=== PATIENT | male | born 1940 | race Caucasian/White ===

== ENCOUNTER 2017-08-25 17:47 | Emergency (ER) | payer OTHER ==
--- NOTE | 2017-08-25 17:53 | PDOC ---
History of Present Illness - General History Source: Patient Exam Limitations: No Limitations - History of Present Illness Initial Comments: 08/25/17 18:10 The patient is a 77-year-old male, with a significant past medical history of HTN and hypercholesterolemia, who presents to the ED with a recurrent nosebleed. Pt is bleeding from his left nares. He reports that he takes baby aspirin at night but stopped once the bleeding began 3 days ago. He denies any dizziness or lightheadedness. He denies having any other complaints. <Dixie Buckley - Last Filed: 08/25/17 18:10> - General History Source: Patient Exam Limitations: No Limitations (no trauma rat) <Maura Boyd - Last Filed: 08/25/17 18:42> - General Chief Complaint: Nasal Bleeding Stated Complaint: NOSE BLEED FROM LEFT NARE Past History <Dixie Buckley - Last Filed: 08/25/17 18:10> - Past Medical History Anemia: No Asthma: No Cancer: No Cardiac Disorders: No CVA: No COPD: No CHF: No Dementia: No Diabetes: No GI Disorders: No Disorders: No HTN: Yes Hypercholesterolemia: Yes Liver Disease: No Seizures: No Thyroid Disease: No - Surgical History Abdominal Surgery: No Appendectomy: No Cardiac Surgery: No Cholecystectomy: No Lung Surgery: No Neurologic Surgery: No Orthopedic Surgery: No - Suicide/Smoking/Psychosocial Hx Smoking History: Former smoker Have you smoked in the past 12 months: No If you are a former smoker, when did you quit?: 35 YEARS AGO Hx Alcohol Use: Yes (SOCIALLY) Substance Use Type: None <Maura Boyd - Last Filed: 08/25/17 18:42> - Past Medical History Allergies/Adverse Reactions: Allergies Allergy/AdvReac Type Severity Reaction Status Date / Time amoxicillin Allergy Intermediate Hives Verified 08/25/17 18:02 Home Medications: Ambulatory Orders Ascorbic Acid [Vitamin C -] 1,000 mg PO DAILY 07/03/14 Aspirin [Aspirin EC] 81 mg PO HS 07/03/14 Cholecalciferol (Vitamin D3) [Vitamin D-3] 1,000 unit PO DAILY 07/03/14 Pravastatin Sodium [Pravachol -] 40 mg PO HS 07/03/14 Irbesartan 150 mg PO DAILY 08/25/17 Ubidecarenone [Coq-10] 300 mg PO DAILY 08/25/17 Review of Systems - Review of Systems Able to Perform ROS?: Yes Comments:: 08/25/17 18:11 GENERAL/CONSTITUTIONAL: No fever or chills. No weakness. HEAD, EYES, EARS, NOSE AND THROAT: (+)nosebleed. No change in vision. No ear pain or discharge. No sore throat. CARDIOVASCULAR: No chest pain or shortness of breath. RESPIRATORY: No cough, wheezing, or hemoptysis. GASTROINTESTINAL: No nausea, vomiting, diarrhea or constipation. GENITOURINARY: No dysuria, frequency, or change in urination. MUSCULOSKELETAL: No joint or muscle swelling or pain. No neck or back pain. SKIN: No rash NEUROLOGIC: No headache, vertigo, loss of consciousness, or change in strength/ sensation. ENDOCRINE: No increased thirst. No abnormal weight change. HEMATOLOGIC/LYMPHATIC: No anemia, easy bleeding, or history of blood clots. ALLERGIC/IMMUNOLOGIC: No hives or skin allergy. <Dixie Buckley - Last Filed: 08/25/17 18:10> *Physical Exam - Vital Signs Last Vital Signs Temp Pulse Resp BP Pulse Ox 98.3 F 79 16 136/90 99 08/25/17 17:48 08/25/17 17:48 08/25/17 17:48 08/25/17 17:48 08/25/17 17:48 - Physical Exam Comments: 08/25/17 18:11 GENERAL: Awake, alert, and fully oriented, in no acute distress HEAD: No signs of trauma EYES: PERRLA, EOMI, sclera anicteric, conjunctiva clear ENT: (+)Left nare: there is a small area on medial septum with some scant bleeding. Auricles normal inspection, oropharynx clear without exudates. Moist mucosa. NECK: Normal ROM, supple, no lymphadenopathy, JVD, or masses LUNGS: Breath sounds equal, clear to auscultation bilaterally. No wheezes, and no crackles SKIN: Warm, Dry, normal turgor, no rashes or lesions noted <Dixie Buckley - Last Filed: 08/25/17 18:10> Medical Decision Making - Medical Decision Making 08/25/17 17:50 77-year-old male here today complaining of intermittent nosebleed for the last 24 hours. Patient states it stopped a few hours ago denies feeling lightheaded no chest pain or shortness breath no moderating factors. States has been bleeding heavily denies any blood thinners just aspirin Plavix Coumadin. No trauma no chest pain or shortness breath On exam patient is awake alert no acute distress no pallor noted. Lungs are clear bilaterally heart is regular no murmurs rubs or gallops abdomen soft and nontender extremities are warm well perfused no edema. No skin warm dry no bruising. HEENT no active nasal bleeding Plan patient with intermittent nosebleed no active bleeding. We'll refer for ENT follow-up recommend bacitracin to the anterior nose and humidifier to help with further bleeding. Given instructions how to stop bleeding should it recur proper technique DC home 08/25/17 18:42 Patient's nose stopped bleeding no blood in the posterior pharynx visualized. Bacitracin applied DC home with follow-up with Dr. Vieyra <Maura Boyd - Last Filed: 08/25/17 18:42> *DC/Admit/Observation/Transfer - Attestations Scribe Attestion: 08/25/17 18:13 Documentation prepared by Dixie Buckley, acting as expert medical writer for Maura Boyd MD. <Dixie Buckley - Last Filed: 08/25/17 18:10> <Maura Boyd - Last Filed: 08/25/17 18:42> Diagnosis at time of Disposition: Epistaxis - Discharge Dispostion Condition at time of disposition: Stable - Referrals Referrals: Collins Vieyra MD [Staff Physician] - - Patient Instructions Printed Discharge Instructions: Nosebleed Additional Instructions: For recurrent bleeding and hold pressure at the tip of the nose for at least 10 minutes. Apply bacitracin or other ointment to the anterior portion of urine nares twice daily. He should also use a humidifier to prevent dryness which can contribute to nasal bleeding. Return for any recurrent bleeding, it has not stopped by pressure, feelings of lightheaded, headache, chest pain, or shortness of breath. See referral information for Dr. 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
[2017-08-25 18:05] VITALS: BP 136/90; PULSE 79; TEMP 98.3; BMI 30.5
[2017-08-25] MEDS ORDERED: OXYMETAZOLINE 0.05% NASAL SOLUTION 15 ML BOTTLE NS ONE (18:17)
== END 2017-08-25 18:48 | disposition home or self-care (01) ==
LOC: FER 17:47
DX: R04.0 Epistaxis (principal); I10 Essential (primary) hypertension; E78.00 Pure hypercholesterolemia, unspecified; Z87.891 Personal history of nicotine dependence
CPT/HCPCS: 99281-25

== ENCOUNTER 2019-08-01 07:53 | Day surgery (SDC) | payer OTHER, MEDICARE ==
[2019-07-28 17:16] VITALS: BMI 31.0
[2019-08-01 08:12] VITALS: TEMP 98.4
[2019-08-01] MEDS ORDERED: PROPOFOL 20 ML ONE ×2 (08:45)
[2019-08-01] MEDS ORDERED: LIDOCAINE HCL/PF 2% SDV 5ML VIAL ONE (08:45)
[2019-08-01 09:58] VITALS: BP 115/67; PULSE 68
--- NOTE | 2019-08-04 15:40 | PATH ---
Surgical Pathology Report Patient Name: DEANN GERARD Med. Rec. #: [id number] /Age/Gender: 1940 (Age: 79) / M Account: [id number] Location: [facility] Taken: 08/01/2019 Received: 08/01/2019 Reported: 08/04/2019 Physicians: Reji Chaney M.D. Specimen(s) Received POLYP DISTAL RIGHT COLON Clinical History Family history of colon cancer, history of polyps Postoperative diagnosis: Diverticulosis, colon polyp Final Diagnosis DISTAL RIGHT COLON, POLYP, BIOPSY: SESSILE SERRATED POLYP. Electronically Signed Barbara Velásquez M.D. Gross Description Received in formalin, labeled "biopsy polyp distal right colon" is a alvarado, irregular portion of soft tissue measuring 0.9 cm. in greatest dimension. The specimen is submitted in toto in one cassette. 08/02/201908/02/2019
== END 2019-08-01 09:55 | disposition home or self-care (01) ==
LOC: FASU-ENDO 07:53
PROVIDERS: ATTEND Internal Medicine Gastroenterology
PROC: 0DBK8ZX Excision of Ascending Colon, Via Natural or Artificial Opening Endoscopic, Diagnostic (ICD-10-PCS; principal; 2019-08-01 09:03)
DX: Z86.010 Personal history of colon polyps (principal); D12.2 Benign neoplasm of ascending colon; K57.30 Diverticulosis of large intestine without perforation or abscess without bleeding; K64.8 Other hemorrhoids; Z80.0 Family history of malignant neoplasm of digestive organs